=== PATIENT | male | born 1940 | race Caucasian/White ===

== ENCOUNTER → 2016-03-24 | Outpatient (CLI) | payer MEDICARE, BC ==
[~2016-03-24] MED LIST: ASPI325T32 PO; HYDR-905 PO; LYRI25 PO; MELO-109 PO; METO100T13 PO; PANT40TA4 PO; REMI IV; SIMV20TA PO; VALS320T11 PO
--- NOTE | 2016-03-24 12:32 | RADRPT ---
PROCEDURE: XR right knee. CLINICAL INDICATION: Knee pain TECHNIQUE: AP weightbearing, PA weightbearing, lateral weightbearing and sunrise views are availab le for review. COMPARISON: None available FINDINGS: There is moderate osteoarthrosis involving the lateral tibial femoral compartment and mild osteoarth rosis involving the medial tibial femoral compartment and the patellofemoral compartment. This is as sociated with joint space narrowing, subchondral sclerosis and osteophytosis. There is otherwise normal mineralization, architecture and alignment. No fractures are identified. No osseous lesions are identified. The soft tissues are unremarkable. IMPRESSION: Moderate osteoarthrosis involving the lateral tibial femoral compartment and mild osteoarthrosis inv olving the medial tibial femoral compartment and the patellofemoral compartment. RPTAT: HGDB .Gigi Price MD, Date Time Electronically viewed and signed by .Gigi Price MD, on 03/24/2016 12:32 .B/
--- NOTE | 2016-03-24 12:45 | RADRPT ---
PROCEDURE: Limited x-ray of both lower extremities. CLINICAL INDICATION: Bilateral leg pain. TECHNIQUE: Single frontal view of both lower extremities was obtained from the hips to the calves. COMPARISON: Right knee radiographs dated 03/24/2016. FINDINGS: There are mild degenerative changes of the hips. There are moderate degenerative changes of the bot h knees with right worse than left. IMPRESSION: 1. Mild degenerative changes of the hips. 2. Moderate degenerative changes of both knees with right worse than left. RPTAT: QQ .Titi Cantu MD, MD Date Time Electronically viewed and signed by .Titi Cantu MD, MD on 03/24/2016 12:44 .R/
== END | disposition home or self-care (01) ==
LOC: HKI 10:12
PROVIDERS: ATTEND Orthopaedic Surgery
DX: Z01.818 Encounter for other preprocedural examination (principal); M17.11 Unilateral primary osteoarthritis, right knee; M25.561 Pain in right knee
CPT/HCPCS: 73564; 77073; 87081; G0463

== ENCOUNTER 2016-03-27 11:26 | Inpatient (IN) | payer MEDICARE, BC ==
[~2016-03-27] VITALS: Ht 172.7 cm; Wt 78.6 kg
[2016-03-27] VITALS (24 sets, daily range): BP systolic 109–145; BP diastolic 67–90; PULSE 65–90; RESP 8–22; Ht 172.7 cm; Wt 78.6 kg
[2016-03-27] MEDS: LACTATED RINGER'S 1,000 ML IV SCH ×3 (11:00→20:48)
[~2016-03-27 11:26] MED LIST changes: -ASPI325T32 PO; +EXPAREL NOTE (BUPIVICAINE LIPOSOMAL) XX SCH; -HYDR-905 PO; -LYRI25 PO; -PANT40TA4 PO
[2016-03-27] MEDS ORDERED: traMADOL 50 MG TAB X 1 DOSE PO ONE (13:00)
[2016-03-27] MEDS ORDERED: SOD CHLORIDE 0.9% IV ONE (13:00)
[2016-03-27] MEDS ORDERED: TRANEXAMIC ACID IVPB SCH (13:00)
[2016-03-27] MEDS ORDERED: SOD CHLORIDE 0.9% IVPB SCH (13:00)
[2016-03-27] MEDS ORDERED: TRANEXAMIC ACID IV ONE (13:00)
[2016-03-27] MEDS: PAIN COCKTAIL-CEFUROXIME IRR SCH ×21 (13:00→19:32)
[2016-03-27] MEDS ORDERED: oxyCODONE (CR) 10 MG TAB [oxyCONTIN] X1 DOSE PO ONE (13:00)
[2016-03-27] MEDS ORDERED: CELECOXIB 400 MG PO X1 DOSE PO ONE (13:00)
[2016-03-27] MEDS ORDERED: PREGABALIN 300 MG PO X1 PO ONE (13:00)
[2016-03-27] MEDS ORDERED: CEFAZOLIN 2GM/50 ML (PMX) 50 ML X1 BEFORE INCISION IVPB ONE (13:00)
[2016-03-27] MEDS ORDERED: BUPIVACAINE LIPOSOME/PF 266 MG/20 ML VIAL INFIL SCH (13:00)
[2016-03-27] MEDS ORDERED: ON CALL TO OR IV ONE (13:00)
[2016-03-27] MEDS ORDERED: SODIUM CL BACTERIOSTATIC 30 ML INJ ONE (14:45)
[2016-03-27] MEDS ORDERED: VANCOMYCIN 1 GM INJ ONE ×2 (14:46→17:34)
[2016-03-27] MEDS ORDERED: POLYMYXIN B 500000 UNIT INJ ONE (14:46)
[2016-03-27] MEDS ORDERED: BACITRACIN 50000 UNITS INJ ONE (14:50)
--- NOTE | 2016-03-27 15:54 | HPN ---
Date/Time of Note Date/Time of Note DATE: 03/27/16 TIME: 15:53 Interval H&P Admission Note Pt. seen H&P reviewed: No system changes No change from H&P dictated by Norma Becker M.D on 03/18/16 LUC WOODS MD Mar 27, 2016 15:54
[2016-03-27] MEDS ORDERED: MIDAZOLAM 1 MG/ML 2 ML INJ ONE (16:11)
[2016-03-27] MEDS ORDERED: DEXAMETHASONE 4 MG/ML 1 ML INJ ONE (16:31)
[2016-03-27] MEDS ORDERED: HYDROmorphONE 2 MG/ML SYG ONE (16:34)
[2016-03-27] MEDS ORDERED: SUCCINYLCHOLINE CHLORIDE 100 MG/5 ML SYG IV ONE (16:36)
[2016-03-27] MEDS ORDERED: METOCLOPRAMIDE 10 MG INJ ONE (16:36)
[2016-03-27] MEDS ORDERED: ONDANSETRON 4 MG INJ ONE (16:36)
[2016-03-27] MEDS ORDERED: ONDANSETRON 4 MG INJ IV PRN ×2 (17:30→19:00)
[2016-03-27] MEDS ORDERED: HYDROmorphONE (0.2 MG/ML) 10ML SYG IV PRN ×3 (17:30)
[2016-03-27] MEDS ORDERED: METOCLOPRAMIDE 10 MG INJ IV PRN (17:30)
[2016-03-27] MEDS ORDERED: MEPERIDINE 25 MG INJ IV PRN (17:30)
[2016-03-27] MEDS ORDERED: DIPHENHYDRAMINE 50 MG INJ IV PRN (17:30)
--- NOTE | 2016-03-27 18:47 | OPPN ---
Date/Time of Note Date/Time of Note DATE: 03/27/16 TIME: 18:46 Operative/Procedure Note Dictation # [id number] Pre-Operative Diagnosis Right Knee OA Post-Operative Diagnosis Same Procedure Right TKA Surgeon: LUC WOODS MD Chief Of [place] [employer]: DIDIER AC PA-C Anesthesiologist: SIDNEY ROBLES MD Findings Severe OA Blood Usage/Administration None Implants/Grafts Depuy Attune TKA Estimated blood loss: 50 - 100 ml's Drains Hemovac x 1 Specimens Bone and soft tissue Complications: None Anesthesia type: spinal LUC WOODS MD Mar 27, 2016 18:47
[2016-03-27] MEDS ORDERED: ASPIRIN (EC) 325 MG TAB PO ONE (19:00)
[2016-03-27] MEDS ORDERED: NACL 0.9% 3 ML SYG IV SCH (19:00)
[2016-03-27] MEDS ORDERED: DIPHENHYDRAMINE 25 MG CAP PO PRN (19:00)
[2016-03-27] MEDS ORDERED: MAGNESIUM HYDROXIDE 30ML CUP PO PRN (19:00)
[2016-03-27] MEDS ORDERED: NA PHOSPHATE/BIPHOS 133 ML ENEMA PR PRN (19:00)
[2016-03-27] MEDS ORDERED: oxyCODONE 5 MG TAB PO PRN ×2 (19:00)
[2016-03-27] MEDS ORDERED: HYDROmorphONE 1 MG/ML SYG IV PRN (19:00)
[2016-03-27] MEDS ORDERED: BISACODYL 10 MG SUPP PR PRN (19:00)
--- NOTE | 2016-03-27 19:02 | PN ---
Date/Time of Note Date/Time of Note DATE: 03/27/16 TIME: 18:56 Assessment/Plan Assessment/Plan Assessment/Plan Stable in PACU s/p right TKA -cont abx -pain meds -ASA/SCDs for DVT prophylaxis -monitor drain -OOB with PT in AM -check AM labs -d/c olsen in the morning XR of the right knee is pending at this time Subjective 24 Hr Interval Summary Doing well in PACU. Denies pain. Moving all extremities. Exam/Review of Systems Vital Signs Vitals Vital Signs Date Time Temp Pulse Resp B/P Pulse Ox O2 Delivery O2 Flow Rate FiO2 03/27/16 13:30 97.6 71 16 120/77 97 Room Air Intake and Output 03/26/16 03/26/16 03/27/16 15:00 23:00 07:00 Intake Total 0 ml Balance 0 ml Exam Free Text/Dictation Dressing dry Incision clean, dry, and intact without redness or drainage Thigh soft 5/5 Quadriceps, Tibialis Anterior, EHL, Gastroc, Soleus, Peroneals Normal sensation Palpable DT/PT, CR <2 sec No distal edema DIDIER AC PA-C Mar 27, 2016 19:02
[2016-03-27 19:22] LABS: HEMOGLOBIN 13.4 g/dl (14.0-18.0)
[2016-03-27 19:23] LABS: ADD UMIC YES; URINE BILIRUBIN (Dip) NEGATIVE (NEGATIVE); URINE BLOOD (Dip) TRACE (NEGATIVE); URINE COLOR LT. YELLOW (YELLOW); URINE GLUCOSE (Dip) NEGATIVE (NEGATIVE); URINE KETONES (Dip) NEGATIVE (NEGATIVE); URINE LEUKOCYTE ESTERASE (Dip) NEGATIVE (NEGATIVE); URINE NITRITE (Dip) NEGATIVE (NEGATIVE); URINE TOTAL PROTEIN (Dip) TRACE (NEGATIVE); URINE UROBILINOGEN (Dip) 0.2 E.U./dL (0.1-1.0)
[2016-03-27] MEDS: CEFAZOLIN 2 GM/50 ML (PMX) 50 ML IVPB SCH (19:23)
[2016-03-27] MEDS: KETOROLAC 15 MG INJ IV SCH (19:23)
--- NOTE | 2016-03-27 19:26 | RADRPT ---
PROCEDURE: X-RAY RIGHT KNEE CLINICAL INDICATION: Total knee replacement. Status post surgery. Follow-up. TECHNIQUE: 2 views of the right knee are available for review. COMPARISON: 03/24/2016. FINDINGS: Patient is status post total knee replacement, posterior stabilized. The knee replacement is in goo d position and alignment. No osseous fractures seen. No bone destructive or erosive changes are seen . The bones are well mineralized. There is a surgical drain in place and soft tissue air indicatin g immediate postop status. IMPRESSION: 1. Appropriate postoperative appearance of right knee replacement. 2. No evidence for fracture. RPTAT: XX .Mario Curtis MD, MD Date Time Electronically viewed and signed by .Mario Curtis MD, MD on 03/27/2016 19:26 .T/
[2016-03-27 19:40] LABS: CALCIUM 8.9 mg/dl (8.4-10.2); CREATININE 0.92 mg/dl (0.61-1.24); POTASSIUM 4.6 mmol/L (3.5-5.1)
[2016-03-27 19:41] LABS: SQUAMOUS EPITHELIAL CELL,UR FEW
[2016-03-27] MEDS ORDERED: PROPOFOL 100 ML ONE (19:59)
[2016-03-27] MEDS ORDERED: CEFAZOLIN 1 GM INJ ONE (19:59)
[2016-03-27] MEDS: ATORVASTATIN 10 MG TAB PO SCH (20:55)
[2016-03-27] MEDS: DOCUSATE SODIUM 100 MG CAP PO SCH (20:55)
[2016-03-27] MEDS: PREGABALIN 25 MG CAP PO SCH (20:55)
--- NOTE | 2016-03-27 21:00 | OPR ---
DATE OF OPERATION: 03/27/2016 PREOPERATIVE DIAGNOSIS: Right knee osteoarthritis. POSTOPERATIVE DIAGNOSIS: Right knee osteoarthritis. OPERATION PERFORMED: Right total knee arthroplasty. SURGEON: Luc Woods MD MANAGER OF INTERNATIONAL: ALENA Quinonez COMPONENTS USED: DePuy Attune size 6 femoral component, size 6 tibial baseplate, 6 mm polyethylene insert and a 38 patellar button. ANESTHESIA: Spinal plus general endotracheal intubation plus periarticular injection. ANESTHESIOLOGIST: Natasha Torres MD TOURNIQUET TIME: 63 minutes. ESTIMATED BLOOD LOSS: 50 mL INTRAVENOUS FLUIDS: Two liters of crystalloid. SPECIMENS: Bone and soft tissue. DRAINS: Hemovac x1. COMPLICATIONS: None. DISPOSITION: The patient tolerated the procedure well, was taken to the recovery room in stable con dition. INDICATIONS: The patient is a 76-year-old gentleman who has had progressive worsening pain in the r ight knee with radiographic evidence of severe osteoarthritis. He has failed nonsurgical means of t reatment to control his pain including activity modifications, pain medications, intra-articular inj ections and ambulatory assist devices. Despite these measures, he has had worsening pain. I felt h e would benefit from a total knee arthroplasty. The risks, benefits, and alternatives of the procedure were explained in detail to the patient. I ex plained the risks of the surgery to include but not be limited to, bleeding and possible need for bl ood transfusion; infection; pain; stiffness; neurovascular injury with possible numbness, weakness, and/or paralysis anywhere from the knee down to the toes; fracture; instability; dislocation; wear a nd/or loosening of the prosthesis and possible need for future revision; blood clots; pulmonary embo lism; and anesthetic complications such as heart attack, stroke, GI bleed, pneumonia, and/or . Ample time was allowed for the patient to ask questions, all of which were addressed and answered. T he patient understood the risks involved and wished to proceed. Informed consent was signed prior to the procedure. PROCEDURE: The patient's right knee was initialed with a marking pen in the preoperative area to id entify the correct operative site. The patient was brought to the operating room and transferred fro m [facility] to the operating table where a spinal anesthetic was administered. The patient was then anesthetized and intubated. A Avilez catheter was placed. A timeout was performed to confir m that the right leg was the correct operative site. The patient was given 2 g of Ancef within one h our prior to the procedure. A tourniquet was placed on the operative proximal thigh. The operative k nee and lower extremity were prepped and draped in the usual sterile fashion. The operative lower ex tremity was elevated and exsanguinated with an Esmarch tourniquet. The proximal thigh tourniquet was inflated to 300 mmHg. The knee was flexed. A midline incision was made and carried down through the subcutaneous tissue an d fat with sharp dissection. Limited medial and lateral flaps were raised. A median parapatellar art hrotomy approach was performed. Synovial fluid was normal in color and consistency. The patella was everted and the knee flexed. There were severe tricompartmental osteoarthritic changes noted. A medi al release was performed at the joint line to the midcoronal plane. The ACL and PCL and remnants of the menisci were excised. The stepped drill was used to open up the femoral canal which was irrigate d and sucked dry. The intramedullary guide telma was passed up the femur, and the distal cutting block was pinned into place for a 5-degree valgus cut, taking 10 mm of bone off distally. The oscillating saw was used to make the cut. The tibia was subluxed anteriorly. The tibial cutoff jig was placed over the center of the talus dis tally and over the junction of the medial and middle third of the tibial tubercle proximally. The gu segun was pinned into place and the oscillating saw was used to make the cut. The tibia was sized. The extension gap was checked and accommodated a 6 mm spacer block with the knee in full extension. The re was no varus or valgus instability. At this point, the femur was sized with the posterior referencing guide. Two holes were drilled in 3 degrees of external rotation. The two holes were in line with the transepicondylar axis, perpendicu lar to Madison's line, and in line with the tibial cutoff jig brought up with the knee flexed 90 d egrees and tensed with 2 lamina spreaders, suggesting the femoral rotation was correct. The four-in- one cutting block was pinned into place. The anterior and posterior cuts and chamfer cuts were made with the oscillating saw. The flexion gap was checked and accommodated a 6 mm spacer block at 90 deg alexa. There was no varus or valgus instability, suggesting the flexion and extension gaps were now e qual. The central box was cut out on the femur. The tibia was drilled and punched in proper rotation. Tria l components were placed into position with a trial insert. The patella was cut down from 26 mm down to 15 mm and sized. Three holes were drilled and the trial button placed in position. With all the trials now in place, the knee was taken through range of motion and came to full extension as eviden isabel by the fact that with the foot on my abdomen and axial loading, there was no tendency for the kn ee to flex. The knee was able to be flexed to 125 degrees with good patellar tracking with no latera l tilt or subluxation. At this point, I was satisfied with the overall range of motion, stability, a nd patellar tracking. The trials were removed. The real components were opened. Two bags of cement were mixed, one with an d one without premixed antibiotic. The knee was irrigated with antibiotic saline and sucked dry. Onc e the cement was in a doughy stage, the real components were cemented into place. The knee was held in full extension, and the patellar component was held with a patellar clamp. All excess cement was removed with curettes. As the cement was hardening, the synovial/capsular layer was infiltrated with a mixture of 150 mg of 0.5% Bupivacaine, 8 mg of Duramorph, 300 mcg of epinephrine, 30 mg of [place] l, 100 mcg of clonidine, 750 mg of cefuroxime and 86 mL of normal saline, followed by an injection o f 266 mg of liposomal Bupivacaine. A Hemovac drain was placed in the deep portion of the wound and brought out the anterolateral thigh. Once the cement was completely hardened, the trial liner was removed, and the real insert was opene d. The tourniquet was let down, and there was good hemostasis. The knee was then irrigated with a mi xture of betadine/saline and then antibiotic saline with pulsatile lavage. The real insert was impac jake into the tibia and reduced onto to the femur. The arthrotomy was closed with a few interrupted #1 Ethibond in a yechnn-xf-nflhv fashion, and then closed in a watertight fashion with a running #2 Stratafix suture. Knee flexion was checked against gravity and came to 125 degrees. The subcutaneous layer was irrigated and closed with 2-0 Stratafix, and then 3-0 Stratafix and then Prineo Dermabond on the skin. The wound was covered with an occlusi ve dressing, and secured with cast padding and a bias dressing. The drain was secured with 3-0 nylon . The sponge and needle counts were correct at the end of the case. The patient was then awakened, ext ubated, and taken to the recovery room in stable condition. Dictated By: LUC WOODS MD EZ/NTS Conf#: [id number] DID#: [id number]
[2016-03-28 00:04] VITALS: BP 123/71; RESP 18
[2016-03-28] MEDS: traMADol 50 MG TAB PO SCH ×4 (00:08→17:34)
[2016-03-28] MEDS: ACETAMINOPHEN 1000MG/100ML IV 100 ML IVPB SCH ×4 (00:08→17:33)
[2016-03-28] MEDS: LACTATED RINGER'S 1,000 ML IV SCH ×4 (02:14→17:33)
[2016-03-28] MEDS: KETOROLAC 15 MG INJ IV SCH ×2 (03:24→11:10)
[2016-03-28 04:00] VITALS: BP 138/80; PULSE 77; RESP 16
[2016-03-28] MEDS: PANTOPRAZOLE (EC) 40 MG TAB PO SCH ×2 (05:36→17:33)
[2016-03-28 05:40] LABS: HEMATOCRIT 39.6 % (42.0-52.0); HEMOGLOBIN 13.3 g/dl (14.0-18.0)
[2016-03-28 06:09] LABS: CREATININE 0.87 mg/dl (0.61-1.24)
[2016-03-28 06:10] LABS: CALCIUM 9.3 mg/dl (8.4-10.2)
--- NOTE | 2016-03-28 07:48 | PDOCDIS ---
Discharge Instructions DIAGNOSIS Discharge Diagnosis: s/p right TKA CONDITION Patient Condition: Good HOME CARE INSTRUCTIONS: Diet Instructions: Regular ACTIVITY: Activity Restrictions: Slowly Increase Activity Rest between Activity Avoid heavy lifting Do not operate Machinery Do not operate Power Tool Avoid Heavy Housework Keep Limb Elevated Bathing Restrictions: Shower FOLLOW UP/APPOINTMENTS Appointments follow up in the office with Dr. Valladares on 04/07/16 OTHER ORDERS: Other Orders: S/P TKA Physical Therapy: Three times per week at home x 2 weeks Daily in Rehab/SNF (if indicated) WB STATUS: WBAT 1. Strengthening exercises for both upper and un-operated lower extremities. 2. Gait training with front wheeled walker 3. Active range of motion exercises to operative knee. 4. When not working on knee range of motion exercises, distal towel roll under operative ankle/distal calf to promote full extension. 5. DO NOT PUT ANYTHING BEHIND OPERATIVE KNEE!!! 6. Quadriceps and hamstring strengthening. 7. May switch to cane in contra lateral hand 6 weeks after surgery. 8. Physical Therapy can open case if nursing is not available. 9. Use Ice Machine as instructed from date of surgery while at rest 3X/day. 10. Patient requires mobile SCDs to reduce risk of developing DVT following TKA. Patient will use the mobile SCDs for 30 days postoperatively. Bathing assistance by home health aide twice weekly if Medicare patient. Occupational Therapy: Evaluation for assistive devices and ADL training. Wound Care: Keep incision dry & covered with Tegaderm until first visit with Dr. Valladares Anticoagulation Orders: Enteric Coated Aspirin 325 mg po bid x 6 weeks from date of surgery Follow-up:Call for an appointment with Dr. Valladares in 1 week after discharged from hospital at DME Orders: FWW, 3-in-1 Commode, Polar ice machine, Mobile SCDs DIDIER AC PA-C Mar 28, 2016 07:48
[2016-03-28] MEDS ORDERED: HYDR-905 PO (07:49)
[2016-03-28] MEDS ORDERED: PANT40TA4 PO (07:49)
[2016-03-28] MEDS ORDERED: LYRI25 PO (07:49)
[2016-03-28] MEDS ORDERED: ASPI325T32 PO (07:49)
[2016-03-28 08:06] LABS: ADD UMIC YES; URINE BILIRUBIN (Dip) NEGATIVE (NEGATIVE); URINE BLOOD (Dip) NEGATIVE (NEGATIVE); URINE COLOR LT. YELLOW (YELLOW); URINE GLUCOSE (Dip) NEGATIVE (NEGATIVE); URINE KETONES (Dip) NEGATIVE (NEGATIVE); URINE LEUKOCYTE ESTERASE (Dip) TRACE (NEGATIVE); URINE NITRITE (Dip) NEGATIVE (NEGATIVE); URINE TOTAL PROTEIN (Dip) NEGATIVE (NEGATIVE); URINE UROBILINOGEN (Dip) 0.2 E.U./dL (0.1-1.0)
[2016-03-28] MEDS: DOCUSATE SODIUM 100 MG CAP PO SCH ×2 (09:23→21:11)
[2016-03-28] MEDS: CEFAZOLIN 2 GM/50 ML (PMX) 50 ML IVPB SCH ×2 (09:23→15:48)
[2016-03-28] MEDS: CELECOXIB 200 MG CAP PO SCH (09:23)
[2016-03-28] MEDS: ASPIRIN (EC) 325 MG TAB PO SCH ×2 (09:24→21:11)
[2016-03-28] MEDS: METOPROLOL (XL) 100 MG TAB PO SCH (09:24)
[2016-03-28] MEDS: PREGABALIN 25 MG CAP PO SCH ×2 (09:24→21:11)
[2016-03-28] MEDS: VALSARTAN 160 MG TAB PO SCH (09:24)
--- NOTE | 2016-03-28 09:27 | PN ---
Date/Time of Note Date/Time of Note DATE: 03/28/16 TIME: 09:25 Assessment/Plan Lines/Catheters IV Catheter Type (from Nrsg): Peripheral IV Avilez in Place (from Nrsg): Yes Assessment/Plan Assessment/Plan Stable POD #1, s/p right TKA -d/c abx -pain meds -ASA/SCDs -drain removed -check AM labs -OOB with PT -d/c planning. Home versus SNF Subjective 24 Hr Interval Summary Doing well. No acute overnight events. Denies significant pain. VSS, afebrile. Exam/Review of Systems Vital Signs Vitals Vital Signs Date Time Temp Pulse Resp B/P Pulse Ox O2 Delivery O2 Flow Rate FiO2 03/28/16 04:00 77 16 138/80 96 Nasal Cannula 3.0 03/28/16 00:04 97.6 Intake and Output 03/27/16 03/27/16 03/28/16 15:00 23:00 07:00 Intake Total 2000 ml 2030 ml Output Total 350 ml 880 ml Balance 1650 ml 1150 ml Exam Free Text/Dictation Hemovac: 80cc Dressing dry Incision clean, dry, and intact without redness or drainage Thigh soft 5/5 Quadriceps, Tibialis Anterior, EHL, Gastroc, Soleus, Peroneals Normal sensation Palpable DT/PT, CR <2 sec No distal edema Results Result Diagram: 03/28/16 0415 03/28/16 0415 DIDIER AC PA-C Mar 28, 2016 09:27
[2016-03-28 09:40] LABS: BACTERIA,URINE RARE; URINE RBCS 0-2 /HPF (0)
--- NOTE | 2016-03-28 12:59 | PN ---
Date/Time of Note Date/Time of Note DATE: 03/28/16 TIME: 12:57 Assessment/Plan VTE Prophylaxis VTE Prophylaxis Intervention: SCD's Lines/Catheters IV Catheter Type (from Nrsg): Peripheral IV Urinary Cath still in place: No Subjective 24 Hr Interval Summary Free Text/Dictation anesthsia note:A 76 year male s/p right knee arthroplasty under GA and spinal, POD#1 pt is dong fine, aambulated , no pain, N/V, headache. back id clean. VS is table Exam/Review of Systems Vital Signs Vitals Vital Signs Date Time Temp Pulse Resp B/P Pulse Ox O2 Delivery O2 Flow Rate FiO2 03/28/16 04:00 77 16 138/80 96 Nasal Cannula 3.0 03/28/16 00:04 97.6 Intake and Output 03/27/16 03/27/16 03/28/16 14:59 22:59 06:59 Intake Total 2000 ml 2030 ml Output Total 350 ml 880 ml Balance 1650 ml 1150 ml Results Result Diagram: 03/28/16 0415 03/28/16 0415 Results 24 hrs Laboratory Tests Test 03/27/16 18:55 03/27/16 19:15 03/28/16 03:54 03/28/16 04:15 Urine Bilirubin NEGATIVE NEGATIVE Urine Clarity CLEAR CLEAR Urine Color LT. YELLOW LT. YELLOW Urine Glucose NEGATIVE NEGATIVE Urine Hemoglobin TRACE NEGATIVE Urine Ketones NEGATIVE NEGATIVE Urine Leukocyte Esterase NEGATIVE TRACE H Urine Microscopic RBC 10-25 0-2 Urine Microscopic WBC 0-2 2-5 Urine Nitrite NEGATIVE NEGATIVE Urine Specific [place] 1.020 1.015 Urine Squamous Epithelial Cells FEW Urine Total Protein TRACE NEGATIVE Urine Urobilinogen 0.2 E.U./dL 0.2 E.U./dL Urine pH 6.0 5.5 Anion Gap 15 18 H Blood Urea Nitrogen 20 22 H Calcium Level 8.9 9.3 Carbon Dioxide Level 25 25 Chloride Level 104 102 Creatinine 0.92 0.87 Glucose Level 111 150 Hematocrit 40.0 L 39.6 L Hemoglobin 13.4 L 13.3 L Potassium Level 4.6 5.0 Sodium Level 139 140 Urine Bacteria RARE Urine Epithelial Cells RARE Medications Medications Current Medications Miscellaneous Information 1 ea NOTE XX ; Start 03/27/16 at 11:00; Stop 03/31/16 at 10:59 Metoprolol Succinate (Toprol Xl) 100 mg DAILY PO Last administered on 09:24; Admin Dose 100 MG; Start 03/28/16 at 09:00 Valsartan (Diovan) 320 mg DAILY PO Last administered on 03/28/16 09:24; Admin Dose 320 MG; Start 03/28/16 at 09:00 Atorvastatin Calcium 10 mg 10 mg QHS PO Last administered on 03/27/16 20:55; Admin Dose 10 MG; Start 03/27/16 at 21:00 Lactated Ringer's (Lr) 1,000 ml @ 125 mls/hr Q8H IV ; Start 03/27/16 at 18:45 Celecoxib 200 mg 200 mg DAILY PO Last administered on 03/28/16 09:23; Admin Dose 200 MG; Start 03/28/16 at 09:00 Acetaminophen (Ofirmev 1000mg/ 100ml Iv) 100 ml @ 400 mls/hr Q6 IVPB Last administered on 03/28/16 12:05; Admin Dose 400 MLS/HR; Start 03/28/16 at 00:00 ; Stop 03/28/16 at 23:59 Tramadol HCl (Ultram) 50 mg Q6 PO Last administered on 03/28/16 12:05; Admin Dose 50 MG; Start 03/28/16 at 00:00; Stop 03/30/16 at 23:59 Oxycodone HCl (Roxicodone) 5 mg Q4H PRN PO PAIN LEVEL 1-3; Start 03/27/16 at 19 :00 Oxycodone HCl (Roxicodone) 10 mg Q4H PRN PO PAIN LEVEL 4-7; Start 03/27/16 at 19:00 Hydromorphone HCl 1 mg 1 mg Q3H PRN IV PAIN LEVEL 8-10; Start 03/27/16 at 19:00 Cefazolin Sodium/ Dextrose (Ancef 2 Gm/50 ml (Pmx)) 50 ml @ 100 mls/hr Q8H IVPB Last administered on 03/28/16 09:23; Admin Dose 100 MLS/HR; Start at 00:00; Stop 03/28/16 at 16:29 Ondansetron HCl (Zofran Inj) 4 mg Q6H PRN IV NAUSEA AND/OR VOMITING; Start at 19:00 Bisacodyl (Dulcolax Supp) 10 mg Q12H PRN [place] CONSTIPATION; Start 03/27/16 at 19: 00 Magnesium Hydroxide (Milk Of Mag) 30 ml BID PRN PO CONSTIPATION; Start at 19:00 Sodium Biphosphate/ Sodium Phosphate (Fleet Enema) 133 ml DAILY PRN [place] CONSTIPATION; Start 03/27/16 at 19:00 Docusate Sodium (Colace) 100 mg BID PO Last administered on 03/28/16 09:23; Admin Dose 100 MG; Start 03/27/16 at 21:00 Diphenhydramine HCl (Benadryl) 25 mg Q6H PRN PO PRURITUS; Start 03/27/16 at 19: 00 Aspirin (Ecotrin) 325 mg BID PO Last administered on 03/28/16 09:24; Admin Dose 325 MG; Start 03/28/16 at 09:00 Pantoprazole (Protonix Tab) 40 mg BID@06,18 PO Last administered on 03/28/16 05:36; Admin Dose 40 MG; Start 03/28/16 at 06:00 Pregabalin (Lyrica) 50 mg BID PO Last administered on 03/28/16 09:24; Admin Dose 50 MG; Start 03/27/16 at 21:00 SIDNEY ROBLES MD Mar 28, 2016 12:59
[2016-03-28 19:45] VITALS: BP 121/72; RESP 18
[2016-03-28] MEDS: ATORVASTATIN 10 MG TAB PO SCH (21:11)
[2016-03-29] MEDS: LACTATED RINGER'S 1,000 ML IV SCH (02:45)
[2016-03-29] MEDS: PANTOPRAZOLE (EC) 40 MG TAB PO SCH (05:27)
[2016-03-29] MEDS: traMADol 50 MG TAB PO SCH ×2 (05:58)
[2016-03-29 06:06] LABS: HEMATOCRIT 32.9 % (42.0-52.0); HEMOGLOBIN 11.6 g/dl (14.0-18.0)
[2016-03-29 06:27] LABS: POTASSIUM 4.7 mmol/L (3.5-5.1)
[2016-03-29 06:29] LABS: CREATININE 0.96 mg/dl (0.61-1.24)
[2016-03-29 06:30] LABS: CALCIUM 8.9 mg/dl (8.4-10.2)
--- NOTE | 2016-03-29 07:44 | PN ---
Date/Time of Note Date/Time of Note DATE: 03/29/16 TIME: 07:43 Assessment/Plan Lines/Catheters IV Catheter Type (from Nrsg): Peripheral IV Avilez in Place (from Nrsg): No Assessment/Plan Assessment/Plan POD # 2. Stable. -D/C to home -Pain meds -Home PT -ASA 325 mg po bid plus home SCDs -F/u with me in 1 week Subjective 24 Hr Interval Summary Doing well. Wants to go home today. Exam/Review of Systems Vital Signs Vitals Vital Signs Date Time Temp Pulse Resp B/P Pulse Ox O2 Delivery O2 Flow Rate FiO2 03/28/16 19:45 98.0 78 18 121/72 96 03/28/16 04:00 Nasal Cannula 3.0 Intake and Output 03/28/16 03/28/16 03/29/16 15:00 23:00 07:00 Intake Total 150 ml 1720 ml 820 ml Output Total 1600 ml 1620 ml Balance 150 ml 120 ml -800 ml Exam Free Text/Dictation Dressing dry Incision clean, dry, and intact without redness or drainage 5/5 Tibialis Anterior, EHL, Gastroc Soleus, Peroneals Normal sensation Palpable DP/PT, CR < 2 Sec No distal edema Results Result Diagram: 03/29/16 0435 03/29/16 0435 LUC WOODS MD Mar 29, 2016 07:44
[2016-03-29 08:00] VITALS: BP 138/77; RESP 16
[2016-03-29] MEDS: DOCUSATE SODIUM 100 MG CAP PO SCH (08:46)
[2016-03-29] MEDS: VALSARTAN 160 MG TAB PO SCH (08:47)
[2016-03-29] MEDS: CELECOXIB 200 MG CAP PO SCH (08:47)
[2016-03-29] MEDS: METOPROLOL (XL) 100 MG TAB PO SCH (08:47)
[2016-03-29] MEDS: ASPIRIN (EC) 325 MG TAB PO SCH (08:47)
[2016-03-29] MEDS: PREGABALIN 25 MG CAP PO SCH (08:49)
--- NOTE | 2016-03-30 07:49 | DS ---
DATE OF ADMISSION: 03/27/2016 DATE OF DISCHARGE: 03/29/2016 ADMITTING DIAGNOSIS: Right knee osteoarthritis. FINAL DIAGNOSIS: Status post right total knee arthroplasty. HOSPITAL COURSE: Patient was admitted, taken to the operating room where he underwent a right total knee arthroplasty. There were no complications. He tolerated the procedure well. He was taken to the recovery room in stable condition. He was given routine perioperative intravenous antibiotics. Pain was controlled with oral pain medications. He was started on enteric-coated aspirin 325 mg t wice daily for DVT prophylaxis along with sequential compression devices of the lower extremities. He was seen by physical therapy and educated on gait training and use of a front-wheel walker. The drain was removed on postoperative day 1 and the incision inspected and noted to be clean, dry and i ntact with no redness or drainage. He did well with physical therapy, ambulating up and down the lls independently. By postoperative day 2, he was comfortable. He remained afebrile, hemodynamical ly stable and neurovascularly intact. By this point, he was ready to be discharged to home. DISCHARGE CONDITION: Good. DISPOSITION: Home. DISCHARGE MEDICATIONS: 1. He will continue with [place] 1 to 2 tabs p.o. q.4-6 hours p.r.n. moderate pain and tramadol 1 to 2 tabs p.o. q.4-6 hours p.r.n. mild pain. 2. He will continue with enteric-coated aspirin 325 mg twice daily for DVT prophylaxis. For the remainder of the medications, please refer to the medication reconciliation form. DISCHARGE INSTRUCTIONS: He should keep the incision dry. He will continue with a front-wheel walke r for ambulatory support and continue with range of motion exercises with physical therapy at home. He should keep the incision dry. FOLLOWUP: He will follow with me in the office in 1 week. Dictated By: LUC WOODS MD EZ/NTS Conf#: [id number] DID#: [id number] CC: LUC WOODS MD;*EndCC*
== END 2016-03-29 11:45 | disposition home or self-care (01) | DRG 470 ==
LOC: REC 11:26 → MS1 20:37
PROVIDERS: ADMIT Orthopaedic Surgery; ATTEND Orthopaedic Surgery
PROC: 0SRC0J9 Replacement of Right Knee Joint with Synthetic Substitute, Cemented, Open Approach (ICD-10-PCS; principal; 2016-03-27 15:30)
DX: M17.11 Unilateral primary osteoarthritis, right knee (principal); E78.5 Hyperlipidemia, unspecified
CPT/HCPCS: 73560; 80048; 81001; 81003; 85014; 85018; 86850; 86900; 86901; 86920; 87081; 87086; 88304; 88311; 97116; 97162; 97166; 97530; Z7610; C1776; C9290; J0131; J0171; J0330; J0690; J0697; J0735; J1100; J1170; J1885; J2250; J2274; J2405; J2765; J3370; J7120

== ENCOUNTER → 2016-04-07 | Outpatient (CLI) | payer MEDICARE, BC ==
[~2016-04-07] MED LIST changes: +ASPI325T32 PO; -EXPAREL NOTE (BUPIVICAINE LIPOSOMAL) XX SCH; +HYDR-905 PO; +LYRI25 PO; -MELO-109 PO; +PANT40TA4 PO
--- NOTE | 2016-04-07 22:32 | HKNOTE ---
DATE OF SERVICE: 04/07/2016 INTERVAL HISTORY: The patient presents today for his first postoperative evaluation on his right knee. He is now 10 days status post right total knee arthroplasty. He is doing well overall. He is working with home health. He is taking aspirin 325 mg b.i.d. He denies any significant pain. He denies any fevers or chills. There is no soft tissue swelling. He presents today for his first postoperative evaluation. PHYSICAL EXAMINATION: He is alert and oriented x4, and in no acute distress. He is walking without an assistive device. Exam of the right knee demonstrates the incision to be clean, dry, well healing. Prineo is in place. There is no erythema or warmth. Varus and valgus forces are stable. Compartments are soft. He is neurovascularly intact distally. IMAGING: Two views of the right knee were obtained today and they were reviewed by me and show good anatomic alignment of the prosthesis. No dislocations or fractures noted. ASSESSMENT: Ten day status post right total knee arthroplasty, doing well. PLAN: 1. Continue aspirin 325 mg b.i.d. for DVT prophylaxis. 2. Pain medication as needed. 3. Continue with home health and transition to outpatient physical therapy. 4. Prineo removed, Steri-Strips applied. 5. Follow up in 4 weeks for repeat evaluation. Dictated By: DIDIER CARVAJAL for LUC SANTIAGO/MARU Conf#: [id number] DID#: [id number] MTDD
--- NOTE | 2016-04-08 09:32 | RADRPT ---
PROCEDURE: XR Knee. CLINICAL INDICATION: Pain TECHNIQUE: Two views of the right knee are available for review. COMPARISON: 03/27/2016 FINDINGS: Right knee and replacement is redemonstrated in the anatomic location. No acute fracture or disloca tion is seen. Alignment is anatomic. No other abnormality is identified. IMPRESSION: 1. Stable and unremarkable appearance of right knee replacement. 2. No acute fracture or dislocation is seen. RPTAT: QQ .Rick Broussard MD, MD Date Time Electronically viewed and signed by .Rick Broussard MD, on 04/08/2016 09:31 .R/
== END | disposition home or self-care (01) ==
LOC: HKI 09:56
PROVIDERS: ATTEND Orthopaedic Surgery
DX: Z47.1 Aftercare following joint replacement surgery (principal); Z96.651 Presence of right artificial knee joint
CPT/HCPCS: 73560; G0463

== ENCOUNTER → 2016-05-05 | Outpatient (CLI) | payer MEDICARE, BC | END | disposition home or self-care (01) | LOC: HKI 08:56 | PROVIDERS: ATTEND Orthopaedic Surgery | DX: Z47.1 Aftercare following joint replacement surgery (principal); M17.11 Unilateral primary osteoarthritis, right knee; Z96.651 Presence of right artificial knee joint ==

== ENCOUNTER → 2016-06-16 | Outpatient (CLI) | payer MEDICARE, BC ==
--- NOTE | 2016-06-16 10:15 | RADRPT ---
PROCEDURE: XR right knee. CLINICAL INDICATION: Knee pain. TECHNIQUE: AP weightbearing, lateral weightbearing and sunrise views are available for review. COMPARISON: 04/07/2016 FINDINGS: There is a total knee replacement. There is no evidence of loosening of the prosthesis. There is no evidence of hardware failure. The osseous structures are normal in mineralization, architecture and alignment No acute fracture or dislocation is seen.No osseous lesions are identified. The soft tiss ues are unremarkable . IMPRESSION: Unremarkable total knee replacement. RPTAT: HGDB .Gigi Price MD, MD Date Time Electronically viewed and signed by .Gigi Price MD, MD on 06/16/2016 10:15 .B/
== END | disposition home or self-care (01) ==
LOC: HKI 08:55
PROVIDERS: ATTEND Orthopaedic Surgery
DX: Z47.1 Aftercare following joint replacement surgery (principal); Z96.651 Presence of right artificial knee joint